=== PATIENT | female | born 1990 | race African-American/Black ===

== ENCOUNTER 2022-03-28 23:48 | Emergency (ER) | payer OTHER, SELFPAY ==
[2022-03-28 23:49] VITALS: BP 160/89; PULSE 78; RESP 18; TEMP 36.1; O2SAT 100
--- NOTE | 2022-03-29 00:04 | ED.PSYCH ---
HPI - Psych General Chief Complaint: Psychiatric Symptoms Stated Complaint: ?HI Time Seen by Provider: 03/28/22 23:51 History of Present Illness HPI Narrative: Patient is a 31-year-old female with a history of schizophrenia, depression, PTSD presenting for psychiatric evaluation. Patient states that she has had a lot of stressors in her life lately especially with her family. States that she clashes with her father and her sisters. She states that she feels that most of her family treats her very poorly. Patient currently is staying with her father and today she became frustrated with him and started having thoughts of hurting him. States that she has had fleeting thoughts of hurting herself in the last several weeks but states she does not think that she would act on them. She denies paranoia or hallucinations. States that she has been compliant with her medications. Related Data Allergies Allergy/AdvReac Type Severity Reaction Status Date / Time No Known Allergies Allergy Verified 03/29/22 00:03 Review of Systems Review of Systems: All systems reviewed & are unremarkable except as noted in HPI and below PMFSH Social History Social History Substance use type: does not use and prescription drug Exam Narrative: GENERAL: Well-appearing, well-nourished, and in no acute distress. HEAD: Normocephalic, atraumatic. EYES: PERRLA and EOMI. ENT: Nares clear, no rhinorrhea or epistaxis. Mucous membranes moist. NECK: Supple. CHEST: Clear to auscultation. No respiratory distress. HEART: Regular rate and rhythm. No murmur heard. Normal peripheral pulses. ABDOMEN: Soft, nontender, nondistended, normal active bowel sounds. EXTREMITIES: Normal range of motion. No edema. SKIN: Warm, dry, no rash. NEURO: No focal deficits. Alert and oriented x3. PSYCH: Intermittently tearful, normal affect, + thoughts of harming others, no hallucinations, denies suicidal ideation Course Vital Signs Vital signs: Vital Signs Temperature 97.0 F L 03/28/22 23:49 Pulse Rate 78 03/28/22 23:49 Respiratory Rate 18 03/28/22 23:49 Blood Pressure 160/89 H 03/28/22 23:49 Pulse Oximetry 100 03/28/22 23:49 Oxygen Delivery Room Air 03/28/22 23:49 Temperature 97.0 F L 03/28/22 23:49 Pulse Rate 78 03/28/22 23:49 Respiratory Rate 18 03/28/22 23:49 Blood Pressure 160/89 H 03/28/22 23:49 Pulse Oximetry 100 03/28/22 23:49 Oxygen Delivery Room Air 03/28/22 23:49 MDM - Psych MDM Narrative Medical decision making narrative: Patient is a 31-year-old female presenting for psychiatric evaluation. Patient is hypertensive, otherwise vitals are within normal limits. Exam is remarkable for the above. Plan for medical clearance and crisis eval. blood work with elevated TSH but free T4 is normal. Patient was evaluated by crisis who has deemed her safe for discharge with a safety plan. Patient provided with appropriate outpatient resources. Patient feels safe going home. Denies SI or HI. Appropriate return precautions given. Discharged in stable condition. Differential Diagnosis Differential diagnosis: Likely acute psychosis, chronic schizophrenia, suicidal ideation, depression and acute anxiety Lab Data 03/29/22 00:39 03/29/22 00:39 Labs: Lab Results 03/29/22 03/29/22 03/29/22 Range/Units 00:39 00:39 00:39 WBC 9.8 (4.5-10.0) K/mm3 RBC 3.95 L (4.2-5.4) M/mm3 Hgb 11.4 L (12.0-15.0) g/dL Hct 34.4 L (37.0-47.0) % MCV 87.1 (80-100) fl MCH 28.9 (26-34) pg MCHC 33.1 (32-36) g/dl RDW 12.9 (11.5-14.5) % Plt Count 331 (150-375) k/mm3 MPV 10.9 H (7.4-10.4) fl Immature Gran % (Auto) 1.2 H (0-0.5) % Neut % (Auto) 68.3 (45.5-73.1) % Lymph % (Auto) 22.6 (18.3-44.2) % [place] % (Auto) 5.5 (2.6-8.5) % Eos % (Auto) 1.8 (0-4.4) % Baso % (Auto) 0.6 (0.2-1.2) % Lymph # (Au
[2022-03-29 00:47] LABS: Basophils Absolute Auto 0.1 K/mm3 (0.0-0.1); Basophils Percent Auto 0.6 % (0.2-1.2); Eosinophils Absolute Auto 0.2 K/mm3 (0-0.3); Eosinophils Percent Auto 1.8 % (0-4.4); Hematocrit 34.4 % (37.0-47.0); Hemoglobin 11.4 g/dL (12.0-15.0); Immature Granulocyte Absolute 0.12 K/mm3 (0.00-0.031); Immature Granulocyte Percent A 1.2 % (0-0.5); Lymphocytes Percent Auto 22.6 % (18.3-44.2); Mean Corpuscular HGB Conc 33.1 g/dl (32-36); Mean Corpuscular Hemoglobin 28.9 pg (26-34); Mean Corpuscular Volume 87.1 fl (80-100); Mean Platelet Volume 10.9 fl (7.4-10.4); Monocytes Absolute Auto 0.5 K/mm3 (0.1-0.6); Monocytes Percent Auto 5.5 % (2.6-8.5); Neutrophils Absolute Auto 6.7 K/mm3 (1.3-6.7); Neutrophils Percent Auto 68.3 % (45.5-73.1); Platelet Count Result 331 k/mm3 (150-375); Red Blood Count 3.95 M/mm3 (4.2-5.4); Red Cell Distribution Width 12.9 % (11.5-14.5); White Blood Count 9.8 K/mm3 (4.5-10.0)
[2022-03-29 00:55] LABS: Acetaminophen < 10 ug/mL (10-30); Ethanol < 10 mg/dL (<10); Salicylate < 1.0 mg/dL (2-20)
[2022-03-29 00:56] LABS: Alanine Aminotransferase 25 U/L (6-35); Albumin Level 3.9 g/dL (3.5-5.1); Alkaline Phosphatase 79 U/L (38-126); Anion Gap 6 mmol/L (8-16); Appearance Urine Clear (Clear); Aspartate Amino Transferase 26 U/L (14-36); Bilirubin Urine Negative (Negative); Bilirubin,Total 0.4 mg/dL (0.2-1.3); Blood Urea Nitrogen 13 mg/dL (7-17); Blood Urine Negative (Negative); Calcium 8.8 mg/dL (8.4-10.2); Carbon Dioxide 27 mmol/L (22-30); Chloride 103 mmol/L (98-107); Color Urine Yellow (Yellow); Estimated CRCL calculation 141 ml/min; Estimated Glomerular Filt Rate > 60; Glucose 105 mg/dL (65-110); Glucose Urine UA Negative (Negative); Ketones Urine Negative (Negative); Leukocyte Esterase Ur Negative LEU/UL (Negative); Nitrate Urine Negative (Negative); Potassium 3.6 mmol/L (3.4-5.0); Protein Urine Negative (Negative); Sodium 136 mmol/L (137-145); Specific Grav Ur 1.025 (1.001-1.035); Urobilinogen Urine 0.2 mg/dL (<2.0)
[2022-03-29 01:03] LABS: Bacteria Urine Trace /hpf; Mucus Urine Rare /lpf; RBC Urine 0-2 /hpf (0-2); Squamous Epithelial Cell Urine Occasional /hpf (Few); WBC Urine 0-3 /hpf
[2022-03-29 01:07] LABS: Amphetamine Screen Urine Negative (Negative); Barbiturate Screen Urine Negative (Negative); Benzodiazepines Screen Urine Negative (Negative); Cannabinoid Screen Urine Positive (Negative); Cocaine Screen Urine Negative (Negative); Methadone Screen Urine Negative (Negative); Opiate Screen Urine Negative (Negative); Phencyclidine Screen Urine Negative (Negative)
[2022-03-29 01:09] LABS: Add Urine Microscopic? YES
[2022-03-29 01:23] LABS: Influenza A QL RT-PCR Negative (Negative); Influenza B QL RT-PCR Negative (Negative); SARS-CoV-2 RNA PCR Negative
[2022-03-29 02:45] LABS: Free T4 Free Thyroxine 1.14 ng/mL (0.78-2.19)
== END 2022-03-29 06:50 | disposition home or self-care (01) ==
PROVIDERS: Emergency Provider Emergency Medicine
DX: F20.9 Schizophrenia, unspecified (principal); Z20.822 Contact with and (suspected) exposure to COVID-19; F32.A Depression, unspecified; F43.10 Post-traumatic stress disorder, unspecified
CPT/HCPCS: 36415; 80053; 80307; 81001; 81025; 84439; 84443; 85025; 87636; 99284

== ENCOUNTER 2022-04-17 19:36 | Emergency (ER) | payer OTHER, SELFPAY ==
[2022-04-17 19:37] VITALS: BP 144/77; PULSE 73; RESP 18; TEMP 36.2; O2SAT 100
--- NOTE | 2022-04-17 22:56 | PC.NURSE ---
pt left d/t wait time
== END 2022-04-17 22:56 | disposition left against medical advice (07) ==
DX: R09.81 Nasal congestion (principal)
CPT/HCPCS: 99199